=== PATIENT | male | born 1945 | race Caucasian/White ===

== ENCOUNTER 2019-09-19 20:38 | Emergency (ER) | payer OTHER ==
[~2019-09-19] VITALS: Ht 175.3 cm; Wt 104.4 kg
[~2019-09-19 20:38] MED LIST: BENA20TA7 PO; CPR500T PO; FLUT9.9S NSEACH; LEVO125T6 PO; LVT.15T PO; RIVA20TA2 PO; TAMS0.4C98 PO; [UNRECOGNIZED DRUG - REMARK] PO
--- NOTE | 2019-09-19 21:28 | ED Cough/URI ---
General Chief Complaint: Cough/Cold/Flu Symptoms Stated Complaint: SOB,VOMITTING Nursing Triage Note: c/o persistant cough x1hr with thick sputom. also reports decreased appetite/nausea x3 weeks. vomitted x1 Sepsis Screen: No Definite Risk Source: patient Exam Limitations: no limitations (LIZ FORTUNE,MED STUDENT) History of Present Illness Date Seen by Provider: Sep 19, 2019 Time Seen by Provider: 21:02 Initial Comments Pt presents to ED via private conveyance with CC of shortness of breath and cough. Symptoms began at 2200 tonight and shortness of breath decreased in severity during interview. Cough is productive of clear, thick sputum and is associated with some nausea, one episode of emesis. Endorses recent illness consisting of fever/chills, nausea/vomiting, malaise, weakness, decreased appetite and mild cough beginning two weeks ago. Pt did not seek medical tx until SOB today. Timing/Duration: just prior to arrival, getting worse Severity/Quality: moderate, productive cough, sputum Modifying Factors: Improves With Coughing, Improves With Rest Associated Symptoms: cough, earache, fever/chills, headache, nasal congestion, nasal drainage, shortness of breath (LIZ FORTUNE,MED STUDENT) Initial Comments Here with acute onset of symptoms at about 8 PM tonight. Patient finished dinner and started coughing. Did have a coughing fit and was coughing up sputum. Did have one episode of emesis with the coughing. Overall feeling a little better now. Has had a few weeks of upper respiratory symptoms and cough and had got better until tonight when he started getting worse again. Timing/Duration: just prior to arrival, changing over time Severity/Quality: moderate, productive cough, sputum Modifying Factors: Worse With Coughing; Improves With Rest Associated Symptoms: cough, earache, fever/chills, nasal congestion, nasal drainage, shortness of breath (ANTONIO SIMON MD) Allergies and Home Medications Allergies Uncoded Allergies: cats (Allergy, Mild, 02/14/13) hayfever (Allergy, Mild, 02/14/13) horses (Allergy, Mild, 02/14/13) Home Medications Benazepril HCl 20 Mg Tablet, 20 MG PO DAILY, (Reported) Fluticasone Propionate 9.9 Ml [place].susp, 2 SPRAY NSEACH HS, (Reported) Levothyroxine Sodium 125 Mcg Tablet, 125 MCG PO DAILY, (Reported) Tamsulosin HCl 0.4 Mg Cap, 0.4 MG PO HS, (Reported) Patient Home Medication List Home Medication List Reviewed: Yes (LIZ FORTUNE MED STUDENT) Home Medication List Reviewed: Yes (ANTONIO SIMON MD) Review of Systems Review of Systems Constitutional: chills, fever, malaise EENTM: ear pain (pressure), nose congestion; No ear discharge, No hearing loss, No eye pain, No vision loss, No nose pain, No throat pain Respiratory: see HPI, cough; No dyspnea on exertion, No orthopnea; short of breath Cardiovascular: No chest pain, No Hx of Intervention Gastrointestinal: No abdominal pain, No diarrhea, No dysphagia; nausea, vomiting Genitourinary: No discharge, No incontinence, No pain Musculoskeletal: No back pain, No joint pain Skin: No lesions, No lumps, No rash Psychiatric/Neurological: Headache; Denies Numbness, Denies Tremors (LIZ FORTUNE MED STUDENT) Constitutional: see HPI EENTM: see HPI Respiratory: see HPI Gastrointestinal: nausea, vomiting Genitourinary: no symptoms reported Musculoskeletal: no symptoms reported Skin: no symptoms reported (ANTONIO SIMON MD) Past Wgyzvjm-[id number]-[id number] Hx Past Med/Social Hx: Reviewed Nursing Past Med/Soc Hx (ANTONIO SIMON MD) Patient Social History Alcohol Use: Denies Use Recreational Drug Use: No Smoking Status: Former Smoker Type Used: Cigarettes 2nd Hand Smoke Exposure: No Recent Foreign Travel: No Contact w/Someone Who Travel: No Recent Infectious Disease Expo: No Recent Hopitalizations: No Physical Abuse: No Sexual Abuse: No Mistreated: No Fear: No (LIZ FORTUNE MED STUDENT) Immunizations Up To Date Tetanus Booster (TDap): Unknown PED Vaccines UTD: No (LIZ FORTUNE MED STUDENT) Seasonal Allergies Seasonal Allergies: No (LIZ FORTUNE MED STUDENT) Past Medical History Surgeries: Yes (colonoscopy) Respiratory: Yes Sleep Apnea Cardiac: Yes Coronary Artery Disease, Heart Attack, Hypertension Neurological: No Reproductive Disorders: No Sexually Transmitted Disease: No Genitourinary: Yes Benign Prostatic Hyperpl, Prostate Problems, Kidney Stones Gastrointestinal: No Musculoskeletal: No Endocrine: Yes Hypothyroidsim HEENT: No Cancer: No Psychosocial: No Integumentary: No Blood Disorders: No (LIZ FORTUNE MED STUDENT) Family Medical History Reviewed Nursing Family Hx (ANTONIO SIMON MD) Heart Disease (LIZ FORTUNE MED STUDENT) No Pertinent Family Hx (ANTONIO SIMON MD) Physical Exam Vital Signs - First Documented (ANTONIO SIMON MD) Capillary Refill : Less Than 3 Seconds (LIZ FORTUNE MED STUDENT) Height: 5'9.00" Weight: 230lbs. 0.0oz. [id number]; 33.00 BMI Method: General Appearance: WD/WN, no apparent distress Eyes: Bilateral Eye PERRL, Bilateral Eye EOMI HEENT: TM abnormal (R) (bulging), TM abnormal (L) (bulging), pharyngeal erythema Neck: supple, normal inspection Respiratory: chest non-tender, lungs clear, normal breath sounds, no accessory muscle use, respiratory distress (mild, resolved during visit ) Cardiovascular: regular rate, rhythm, no edema, no gallop, no murmur Gastrointestinal: non tender, soft Extremities: no calf tenderness, normal capillary refill Neurologic/Psychiatric: alert, oriented x 3 Skin: normal color, warm/dry Lymphatic: no adenopathy (supra/infraclavicular, A/P cervical ) (LIZ FORTUNE MED STUDENT) General Appearance: WD/WN, no apparent distress HEENT: PERRL/EOMI, pharyngeal erythema Neck: full range of motion, supple, normal inspection Respiratory: lungs clear, normal breath sounds, no accessory muscle use Cardiovascular: regular rate, rhythm, no murmur Gastrointestinal: non tender, soft Neurologic/Psychiatric: alert, oriented x 3 Skin: normal color, warm/dry (ANTONIO SIMON MD) Progress/Results/Core Measures Suspected Sepsis Recent Fever Within 48 Hours: No Infection Criteria Present: None New/Unexplained Altered Menta: No Sepsis Screen: No Definite Risk SIRS Temperature: Pulse: 77 Respiratory Rate: 18 Blood Pressure 162 /103 Mean: 122 (LIZ FORTUNE MED STUDENT) Results/Orders Lab Results Laboratory Tests Test 09/19/19 21:35 Range/Units White Blood Count 11.5 H 4.3-11.0 10^3/uL Red Blood Count 4.74 4.35-5.85 10^6/uL Hemoglobin 14.3 13.3-17.7 G/DL Hematocrit 42 40-54 % Mean Corpuscular Volume 88 80-99 FL Mean Corpuscular Hemoglobin 30 25-34 PG Mean Corpuscular Hemoglobin Concent 34 32-36 G/DL Red Cell Distribution Width 12.5 10.0-14.5 % Platelet Count 403 H 130-400 10^3/uL Mean Platelet Volume 9.2 7.4-10.4 FL Neutrophils (%) (Auto) 63 42-75 % Lymphocytes (%) (Auto) 27 12-44 % Monocytes (%) (Auto) 6 0-12 % Eosinophils (%) (Auto) 4 0-10 % Basophils (%) (Auto) 0 0-10 % Neutrophils # (Auto) 7.2 1.8-7.8 X 10^3 Lymphocytes # (Auto) 3.1 1.0-4.0 X 10^3 Monocytes # (Auto) 0.7 0.0-1.0 X 10^3 Eosinophils # (Auto) 0.4 H 0.0-0.3 10^3/uL Basophils # (Auto) 0.0 0.0-0.1 10^3/uL Sodium Level 138 135-145 MMOL/L Potassium Level 4.1 3.6-5.0 MMOL/L Chloride Level 108 H 98-107 MMOL/L Carbon Dioxide Level 17 L 21-32 MMOL/L Anion Gap 13 5-14 MMOL/L Blood Urea Nitrogen 11 7-18 MG/DL Creatinine 1.24 0.60-1.30 MG/DL Estimat Glomerular Filtration Rate 57 BUN/Creatinine Ratio 9 Glucose Level 124 H 70-105 MG/DL Calcium Level 10.0 8.5-10.1 MG/DL Corrected Calcium 9.8 8.5-10.1 MG/DL Total Bilirubin 0.5 0.1-1.0 MG/DL Aspartate Amino Transf (AST/SGOT) 18 5-34 U/L Alanine Aminotransferase (ALT/SGPT) 18 0-55 U/L Alkaline Phosphatase 73 40-136 U/L C-Reactive Protein High Sensitivity 0.86 H 0.00-0.50 MG/DL Total Protein 7.9 6.4-8.2 GM/DL Albumin 4.2 3.2-4.5 GM/DL (ANTONIO SIMON MD) Micro Results Microbiology 09/19/19 Influenza Types A,B Antigen (ARLETTE) - Final, Complete (ANTONIO SIMON MD) My Orders Orders - ANTONIO SIMON MD Cbc With Automated Diff (09/19/19 21:22) Comprehensive Metabolic Panel (09/19/19 21:22) Hs C Reactive Protein (09/19/19 21:22) Influenza A And B Antigens (09/19/19 21:22) Chest Pa/Lat (2 View) (09/19/19 21:22) Ondansetron Injection (Zofran Injectio (09/19/19 21:30) Ed Iv/Invasive Line Start (09/19/19 21:22) Promethazine/ Codeine Syrup (Phenergan W (09/19/19 21:30) Dexamethasone Injection (Decadron Inject (09/19/19 22:00) Cefdinir Capsule (Omnicef Capsule) (09/19/19 22:00) (ANTONIO SIMON MD) Medications Given in ED Current Medications Medications Dose Ordered Sig/Erika Route Start Time Stop Time Status Last Admin Dose Admin Cefdinir 300 mg ONCE ONCE PO 09/19/19 22:00 09/19/19 22:01 DC 09/19/19 22:23 300 MG Dexamethasone Sodium Phosphate 10 mg ONCE ONCE IV 09/19/19 22:00 09/19/19 22:01 DC 09/19/19 22:23 10 MG Ondansetron HCl 4 mg ONCE ONCE IVP 09/19/19 21:30 09/19/19 21:31 DC 09/19/19 21:33 4 MG Promethazine HCl/ Codeine 5 ml ONCE ONCE PO 09/19/19 21:30 09/19/19 21:31 DC 09/19/19 21:33 5 ML (ANTONIO SIMON MD) Vital Signs/I&O 09/19/19 09/19/19 20:57 20:57 Temp 36.6 Pulse 77 Resp 18 B/P (MAP) 162/103 (122) Pulse Ox 99 O2 Delivery Room Air Room Air (ANTONIO SIMON MD) Vital Signs/I&O Capillary Refill : Less Than 3 Seconds (LIZ FORTUNE,MED STUDENT) Blood Pressure Mean: 122 Progress Note : Time: 21:33 Progress Note Seen and evaluated. Ordering CBC,CMP, CXR and sputum culture. (LIZ FORTUNE,MED STUDENT) Progress Note : Progress Note I have seen and evaluated the patient and agree with above except as indicated. I have directed the plan of care. Evaluation as above. Labs and IV ordered. Chest x-ray two-view ordered. Monitor patient. 2200: Patient overall doing better. Chest x-ray does not show significant pneumonia. He did receive Ph energan with codeine for cough and that didn't help. He does appear to have bronchitis. There may be a component of sinusitis. Given 2 weeks of symptoms, antibiotic treatment is indicated. We will give Decadron 10 mg IV now and initiate Omnicef by mouth. Discharged home with return precautions. Patient verbalize understanding of instructions and agreement with plan. (ANTONIO SIMON MD) Diagnostic Imaging Diagonstic Imaging: Xray Plain Films/CT/US/NM/MRI: chest Comments [facility], [place] NAME: OZZIE [facility] REC#: [id number] PT STATUS: REG ER : 1945 PHYSICIAN: ANTNOIO SIMON MD ADMIT DATE: 09/19/19/ER Draft Date of Exam:09/19/19 CHEST PA/LAT (2 VIEW) INDICATION: Cough, congestion. COMPARISON: None. FINDINGS: Frontal and lateral views of the chest demonstrates hyperinflation compatible with COPD. Lungs are clear. The heart is normal. There is no pneumothorax. Osseous structures are stable. IMPRESSION: COPD without infiltrate. Dictated on workstation # [id number] Dict: 09/19/192156 Trans: 09/19/192203 [id number] Interpreted by: MARGOT LAU Electronically signed by: Reviewed: Reviewed by Me (ANTONIO SIMON MD) Departure Impression Primary Impression: Bronchitis Disposition: 01 HOME, SELF-CARE Condition: Stable Departure-Patient Inst. Decision time for Depature: 22:06 (ANTONIO SIMON MD) Referrals: MARSHAL INMAN MD (PCP) Primary Care Physician Patient Instructions: Acute Bronchitis, Adult (DC), Sinusitis, Adult (DC) Add. Discharge Instructions: All discharge instructions reviewed with patient and/or family. Voiced unders tanding. Take medications as directed. Follow-up with your doctor for recheck in a few days. You may take Tylenol/acetaminophen 1000 mg every 8 hours as needed for fever or pain. You may take ibuprofen 600 mg every 8 hours as needed for fever or pain. You may use Afrin nasal spray or the generic, 12 hour relief, 2 sprays to each nostril twice daily for 3 days only and then stop. Do not use more than 3 days. Follow-up with your Dr. in a few days for recheck. Drink plenty of fluids. Return for worse pain, fever, vomiting, weakness, breathing problems or other concerns as needed. Scripts Cefdinir (Cefdinir) 300 Mg Capsule 300 MG PO BID, #14 CAP 0 Refills Prov: ANTONIO SIMON MD 09/19/19 LIZ FORTUNE,MED STUDENT Sep 19, 2019 21:28 ANTONIO SIMON MD Sep 19, 2019 22:05
[2019-09-19] MEDS ORDERED: PROMETHAZINE/ CODEINE SYRUP 5 ML UDC PO ONE (21:30)
[2019-09-19] MEDS ORDERED: ONDANSETRON 4 MG/2 ML (SDV) Z0FRAN IVP ONE (21:30)
[2019-09-19 21:43] LABS: BASOPHILS % (AUTO) 0 % (0-10); EOSINOPHILS # (AUTO) 0.4 10^3/uL (0.0-0.3); EOSINOPHILS % (AUTO) 4 % (0-10); HEMATOCRIT 42 % (40-54); HEMOGLOBIN 14.3 G/DL (13.3-17.7); LYMPHOCYTES # (AUTO) 3.1 X 10^3 (1.0-4.0); LYMPHOCYTES % (AUTO) 27 % (12-44); MEAN CORPUSCULAR HEMOGLOBIN 30 PG (25-34); MEAN CORPUSCULAR HGB CONC 34 G/DL (32-36); MEAN CORPUSCULAR VOLUME 88 FL (80-99); MEAN PLATELET VOLUME 9.2 FL (7.4-10.4); MONOCYTES # (AUTO) 0.7 X 10^3 (0.0-1.0); MONOCYTES % (AUTO) 6 % (0-12); NEUTROPHILS # (AUTO) 7.2 X 10^3 (1.8-7.8); NEUTROPHILS % (AUTO) 63 % (42-75); PLATELET COUNT 403 10^3/uL (130-400); RED CELL DISTRIBUTION WIDTH 12.5 % (10.0-14.5); WHITE BLOOD COUNT 11.5 10^3/uL (4.3-11.0)
[2019-09-19] MEDS ORDERED: CEFDINIR 300 MG (OMNICEF) CAP PO ONE (22:00)
[2019-09-19] MEDS ORDERED: DEXAMETHASONE 10 MG/ML (DECADRON) 1 ML VIAL IV ONE (22:00)
--- NOTE | 2019-09-19 22:04 | Diagnostic Imaging Report ---
INDICATION: Cough, congestion. COMPARISON: None. FINDINGS: Frontal and lateral views of the chest demonstrates hyperinflation compatible with COPD. Lungs are clear. The heart is normal. There is no pneumothorax. Osseous structures are stable. IMPRESSION: COPD without infiltrate. Dictated by: Dictated on workstation # [id number]
[2019-09-19 22:05] LABS: ALBUMIN 4.2 GM/DL (3.2-4.5); BILIRUBIN,TOTAL 0.5 MG/DL (0.1-1.0); CREATININE SERUM 1.24 MG/DL (0.60-1.30); POTASSIUM 4.1 MMOL/L (3.6-5.0); TOTAL PROTEIN 7.9 GM/DL (6.4-8.2)
[2019-09-19] MEDS ORDERED: CEFD300C3 PO (22:33)
[2019-09-19 22:35] VITALS: BP 148/90
== END 2019-09-19 22:37 | disposition home or self-care (01) ==
LOC: EDUNIT# 20:38 → ER 20:39
DX: J40 Bronchitis, not specified as acute or chronic (principal); I25.10 Atherosclerotic heart disease of native coronary artery without angina pectoris; I25.2 Old myocardial infarction; I10 Essential (primary) hypertension; E03.9 Hypothyroidism, unspecified; Z87.442 Personal history of urinary calculi; Z79.51 Long term (current) use of inhaled steroids; Z87.891 Personal history of nicotine dependence; Z82.49 Family history of ischemic heart disease and other diseases of the circulatory system
CPT/HCPCS: 36415; 71046; 80053; 85025; 86141; 87804; 96374; 96375

== ENCOUNTER → 2020-10-03 | Outpatient (CLI) | payer BC, OTHER ==
[~2020-10-03] MED LIST changes: +CEFD300C3 PO; -TAMS0.4C98 PO; +TMSL.4C PO
== END ==
LOC: LABNPT 06:31
PROVIDERS: ATTEND Internal Medicine
DX: Z20.822 Contact with and (suspected) exposure to COVID-19 (principal)
CPT/HCPCS: 87635